=== PATIENT | male | born 1970 | race Caucasian/White ===

== ENCOUNTER 2016-12-19 08:08 | Emergency (ER) | payer OTHER ==
[~2016-12-19] VITALS: Ht 167.6 cm; Wt 82.0 kg
[2016-12-19] MEDS ORDERED: UNKNOWN BP MED (08:27)
[2016-12-19] MEDS ORDERED: SODIUM CHLORIDE 0.9% 1,000 ML IV ONE (09:06)
[2016-12-19] MEDS ORDERED: MORPHINE SULFATE 4 MG/ML CPJ (NOT FOR IM USE) IV STA (09:06)
[2016-12-19] MEDS ORDERED: FAMOTIDINE 20MG/2ML VIAL IV STA (09:06)
[2016-12-19] MEDS ORDERED: ONDANSETRON HCL 4MG/2ML VIAL IV STA (09:06)
[2016-12-19 09:28] LABS: BASOPHILS % 0.5 % (0.0-2.0); EOSINOPHILS % 0.4 % (0.0-5.0); HEMOGLOBIN. 14.3 g/dL (14.0-18.0); LYMPHOCYTES % 10.6 % (20.0-50.0); MEAN CORPUSCULAR HEMOGLOBIN 31.3 pg (28.0-32.0); MEAN CORPUSCULAR HGB CONC 34.9 g/dL (31.0-37.0); MEAN CORPUSCULAR VOLUME 89.6 fL (80.0-94.0); MONOCYTES % 10.9 % (2.0-8.0); NEUTROPHILS % 77.6 % (40.0-76.0); PLATELET 184 x1000/uL (130-400); RED BLOOD CELL COUNT 4.58 mill/uL (4.7-6.1); RED CELL DISTRIBUTION WIDTH 14.2 % (11.6-14.6); WHITE BLOOD COUNT 7.5 x1000/uL (4.5-11.0)
[2016-12-19 09:36] LABS: PROTHROMBIN TIME 10.6 sec
[2016-12-19 09:37] LABS: CHLORIDE 102 mEq/L (98-107); INDEX HEMOLYSI 1 (1-3); INDEX ICTERIC 1 (1-4); INDEX LIPEMIC 1 (1-3)
[2016-12-19 09:46] LABS: ALANINE AMINOTRANSFERASE 30 IU/L (13-61); ALBUMIN 3.8 g/dL (3.4-5.0); ANION GAP 9; CALCIUM 9.3 mg/dL (8.5-10.1); CARBON DIOXIDE 32 mEq/L (21-32); ETHANOL BLOOD < 10 mg/dL; LIPASE 360 IU/L (73-393); TROPONIN I < 0.02 ng/mL (0.00-0.04); UREA NITROGEN BLOOD 8 mg/dL (7-21); eGFR > 60 mL/min (>60)
[2016-12-19 09:48] LABS: CLARITY URINE CLEAR (CLEAR); COLOR URINE YELLOW (YELLOW); GLUCOSE URINE NEGATIVE (NEGATIVE); KETONES URINE NEGATIVE (NEGATIVE); LEUKOCYTE ESTERASE URINE NEGATIVE (NEGATIVE); NITRITE URINE NEGATIVE (NEGATIVE); OCCULT BLOOD URINE TRACE (NEGATIVE); PROTEIN URINE 2+ (NEGATIVE); SPECIFIC GRAVITY URINE 1.016 (1.005-1.030)
[2016-12-19 09:56] LABS: *AMPHETAMINES SCREEN URINE NEGATIVE (NEGATIVE); *BARBITURATES SCREEN URINE NEGATIVE (NEGATIVE); *BENZODIAZEPINES SCREEN URINE NEGATIVE (NEGATIVE); *COCAINE SCREEN URINE NEGATIVE (NEGATIVE); CANNABINOID URINE SCREEN NEGATIVE (NEGATIVE); ECSTASY MDMA SCREEN URINE NEGATIVE (NEGATIVE); METHADONE URINE SCREEN NEGATIVE (NEGATIVE); OPIATES URINE SCREEN NEGATIVE (NEGATIVE); PHENCYCLIDINE URINE SCREEN NEGATIVE (NEGATIVE)
[2016-12-19] MEDS ORDERED: HYDRALAZINE 20MG/ML VIAL IV ONE (10:00)
[2016-12-19 10:10] LABS: WBC URINE 0-2 /hpf (0-2)
[2016-12-19 10:11] LABS: BACTERIA URINE NONE SEEN; SQUAMOUS EPITHELIAL CELL URINE NONE SEEN /lpf (RARE/1+)
[2016-12-19 10:37] VITALS: BP 165/111
== END 2016-12-19 11:01 | disposition home or self-care (01) ==
LOC: ER 09:21
DX: R31.9 Hematuria, unspecified (principal); I10 Essential (primary) hypertension; R10.31 Right lower quadrant pain; R11.2 Nausea with vomiting, unspecified
CPT/HCPCS: 36415; 71010; 74176; 80053; 80305; 81001; 83690; 84484; 85025; 85610; 93005; 96361; 96374; 96375; 99285; G0482; J0360; J2270; J2405; J3490; J7030; Z7610

== ENCOUNTER 2017-05-29 08:32 | Emergency (ER) | payer OTHER ==
[~2017-05-29] VITALS: Ht 170.2 cm; Wt 78.0 kg
[~2017-05-29 08:32] MED LIST: UNKNOWN BP MED
[2017-05-29] MEDS ORDERED: SODIUM CHLORIDE 0.9% 1,000 ML IV ONE (09:19)
[2017-05-29] MEDS ORDERED: KETOROLAC 30MG/ML VIAL IV STA (09:19)
[2017-05-29 09:37] LABS: BASOPHILS % 0.9 % (0.0-2.0); EOSINOPHILS % 0.9 % (0.0-5.0); HEMATOCRIT. 43.3 % (42.0-52.0); HEMOGLOBIN. 15.4 g/dL (14.0-18.0); LYMPHOCYTES % 8.6 % (20.0-50.0); MEAN CORPUSCULAR HEMOGLOBIN 32.7 pg (28.0-32.0); MEAN CORPUSCULAR VOLUME 91.8 fL (80.0-94.0); MEAN PLATELET VOLUME 6.8 fl (7.4-10.4); MONOCYTES % 7.2 % (2.0-8.0); NEUTROPHILS % 82.4 % (40.0-76.0); PLATELET 314 x1000/uL (130-400); RED BLOOD CELL COUNT 4.71 mill/uL (4.7-6.1); RED CELL DISTRIBUTION WIDTH 13.7 % (11.6-14.6)
[2017-05-29 09:41] LABS: PROTHROMBIN TIME 10.7 sec (9.4-11.6)
[2017-05-29 09:42] LABS: CHLORIDE 105 mEq/L (98-107)
[2017-05-29] MEDS ORDERED: CHLORDIAZEPOXIDE 25MG CAPSULE PO ONE (09:45)
[2017-05-29 09:50] LABS: CARBON DIOXIDE 26 mEq/L (21-32)
[2017-05-29 11:19] LABS: CLARITY URINE CLEAR (CLEAR); COLOR URINE ORANGE (YELLOW); GLUCOSE URINE NEGATIVE (NEGATIVE); KETONES URINE TRACE (NEGATIVE); LEUKOCYTE ESTERASE URINE TRACE (NEGATIVE); NITRITE URINE NEGATIVE (NEGATIVE); OCCULT BLOOD URINE 2+ (NEGATIVE); PROTEIN URINE 2+ (NEGATIVE); SPECIFIC GRAVITY URINE 1.019 (1.005-1.030)
[2017-05-29] MEDS ORDERED: AMLODIPINE 5MG TABLET PO ONE (11:45)
[2017-05-29 14:21] VITALS: BP 168/104
== END 2017-05-29 14:23 | disposition home or self-care (01) ==
LOC: ER 08:32
DX: R10.9 Unspecified abdominal pain (principal); F10.239 Alcohol dependence with withdrawal, unspecified; J02.9 Acute pharyngitis, unspecified; I10 Essential (primary) hypertension; F17.200 Nicotine dependence, unspecified, uncomplicated; K76.0 Fatty (change of) liver, not elsewhere classified
CPT/HCPCS: 36415; 74176; 80053; 81001; 83690; 85025; 85610; 93005; 96361; 96374; 99285; J1885; J7030; Z7610

== ENCOUNTER 2018-11-21 05:27 | Inpatient (IN) | payer OTHER ==
[~2018-11-21] VITALS: Ht 165.1 cm; Wt 73.9 kg
[2018-11-21] MEDS ORDERED: HYDRALAZINE 20MG/ML VIAL IV ONE (06:45)
[2018-11-21] MEDS ORDERED: LORAZEPAM 2MG/ML CPJ IV ONE (06:45)
[2018-11-21 07:01] LABS: HEMATOCRIT. 39.6 % (42.0-52.0); HEMOGLOBIN. 13.8 g/dL (14.0-18.0); MEAN CORPUSCULAR HEMOGLOBIN 31.7 pg (28.0-32.0); MEAN CORPUSCULAR VOLUME 91.1 fL (80.0-94.0); MEAN PLATELET VOLUME 6.3 fl (7.4-10.4); PLATELET 211 x1000/uL (130-400); RED BLOOD CELL COUNT 4.34 mill/uL (4.7-6.1)
[2018-11-21 07:05] LABS: CHLORIDE 104 mEq/L (98-107)
[2018-11-21 07:11] LABS: ETHANOL BLOOD < 10 mg/dL
[2018-11-21 07:38] LABS: PLATELET ESTIMATE NORMAL
[2018-11-21] MEDS ORDERED: MORPHINE SULFATE 4 MG/ML CPJ (NOT FOR IM USE) IV PRN (13:45)
[2018-11-21] MEDS ORDERED: ONDANSETRON HCL 4MG/2ML INJ IV PRN (13:45)
[2018-11-21] MEDS ORDERED: IPRATROPIUM/ALBUTEROL 0.5-3(2.5)MG/3ML NEB INH PRN (13:45)
[2018-11-21] MEDS: METOPROLOL TARTRATE 25MG TABLET PO SCH (14:02)
[2018-11-21 14:39] LABS: PROTHROMBIN TIME 10.2 sec (9.6-11.0)
[2018-11-21 14:44] LABS: PHOSPHORUS 4.2 mg/dL (2.5-4.9)
[2018-11-21 15:00] LABS: FERRITIN 218 ng/mL (22-322)
[2018-11-21 15:00] LABS: CLARITY URINE CLEAR (CLEAR); COLOR URINE DARK YELLOW (YELLOW); KETONES URINE 3+ (NEGATIVE); LEUKOCYTE ESTERASE URINE TRACE (NEGATIVE); NITRITE URINE NEGATIVE (NEGATIVE); OCCULT BLOOD URINE NEGATIVE (NEGATIVE); PROTEIN URINE 2+ (NEGATIVE); SPECIFIC GRAVITY URINE 1.024 (1.005-1.030)
[2018-11-21] MEDS ORDERED: HYDRALAZINE 20MG/ML VIAL IV PRN (15:00)
[2018-11-21] MEDS ORDERED: CLONIDINE 0.1MG TABLET PO PRN (15:00)
[2018-11-21 15:04] LABS: FOLIC ACID (FOLATE) SERUM > 20.00 ng/mL (>5.38)
[2018-11-21 15:11] LABS: VITAMIN B12 SERUM 456 pg/mL (211-911)
[2018-11-21 15:12] LABS: HEPATITIS B SURFACE ANTIGEN NEGATIVE
[2018-11-21 15:33] LABS: METHADONE URINE SCREEN NEGATIVE (NEGATIVE); OPIATES URINE SCREEN NEGATIVE (NEGATIVE); PHENCYCLIDINE URINE SCREEN NEGATIVE (NEGATIVE)
[2018-11-21 15:34] LABS: *AMPHETAMINES SCREEN URINE NEGATIVE (NEGATIVE); *BARBITURATES SCREEN URINE NEGATIVE (NEGATIVE); *BENZODIAZEPINES SCREEN URINE NEGATIVE (NEGATIVE); *COCAINE SCREEN URINE NEGATIVE (NEGATIVE); CANNABINOID URINE SCREEN NEGATIVE (NEGATIVE)
[2018-11-21 15:41] LABS: HEPATITIS A AB IGM NEGATIVE (NEGATIVE)
[2018-11-21] MEDS: CHLORDIAZEPOXIDE 25MG CAPSULE PO SCH ×2 (15:42→21:25)
[2018-11-21] MEDS: AMLODIPINE 5MG TABLET PO SCH ×2 (15:43→23:01)
[2018-11-21] MEDS: PANTOPRAZOLE SODIUM 40 MG/VIAL IV SCH (15:43)
[2018-11-21] MEDS: LOSARTAN POTASSIUM 25 MG TABLET PO SCH ×2 (15:43→21:25)
[2018-11-21 16:00] VITALS: BP 187/118
[2018-11-21 16:18] VITALS: BP 187/118
[2018-11-21] MEDS ORDERED: FOLIC ACID 1 MG, THIAMINE HCL 100 MG, MVI, ADULT NO.1 10 ML in DEXTROSE 5% WATER 1,000 ML IV ONE ×4 (17:00)
[2018-11-21 18:00] VITALS: BP 187/118
[2018-11-21 20:00] VITALS: BP 153/97
[2018-11-22] VITALS: BP 146/79
[2018-11-22 04:00] VITALS: BP 138/85
[2018-11-22] MEDS: CHLORDIAZEPOXIDE 25MG CAPSULE PO SCH ×2 (05:53→13:19)
[2018-11-22 06:39] LABS: BASOPHILS % 0.5 % (0.0-2.0); EOSINOPHILS % 1.7 % (0.0-5.0); HEMATOCRIT. 39.4 % (42.0-52.0); HEMOGLOBIN. 13.8 g/dL (14.0-18.0); LYMPHOCYTES % 17.1 % (20.0-50.0); MEAN CORPUSCULAR HEMOGLOBIN 32.4 pg (28.0-32.0); MEAN CORPUSCULAR VOLUME 92.5 fL (80.0-94.0); MONOCYTES % 11.8 % (2.0-8.0); NEUTROPHILS % 68.9 % (40.0-76.0); PLATELET 207 x1000/uL (130-400); RED BLOOD CELL COUNT 4.26 mill/uL (4.7-6.1); RED CELL DISTRIBUTION WIDTH 14.1 % (11.6-14.6)
[2018-11-22 08:00] VITALS: BP 152/90
[2018-11-22 08:09] LABS: CHLORIDE 103 mEq/L (98-107)
[2018-11-22 08:26] LABS: CREATINE KINASE 81 IU/L (39-308)
[2018-11-22 08:31] LABS: CREATINE KINASE MB FRACTION < 1.0 ng/mL (0.5-3.6)
[2018-11-22] MEDS: LOSARTAN POTASSIUM 25 MG TABLET PO SCH (09:24)
[2018-11-22] MEDS: AMLODIPINE 5MG TABLET PO SCH (09:24)
[2018-11-22] MEDS: PANTOPRAZOLE SODIUM 40 MG/VIAL IV SCH (09:24)
[2018-11-22] MEDS: METOPROLOL TARTRATE 25MG TABLET PO SCH (09:25)
[2018-11-22] MEDS ORDERED: POTASSIUM CHLORIDE 20MEQ TABLET SR PO NR (11:14)
[2018-11-22 12:00] VITALS: BP 145/83
[2018-11-22 16:00] VITALS: BP 140/93
[2018-11-22] MEDS ORDERED: METO25TA6 PO (17:42)
[2018-11-22] MEDS ORDERED: L25 PO (17:42)
[2018-11-22] MEDS ORDERED: PANT20TA3 MT (17:42)
[2018-11-22] MEDS ORDERED: LOSA50TA3 PO (17:42)
[2018-11-22] MEDS ORDERED: AMLO5TAB88 PO (17:42)
[2018-11-22 18:11] VITALS: BP 140/93
[2018-11-22] MEDS ORDERED: LOSARTAN POTASSIUM 50 MG TABLET PO SCH (21:00)
[2018-11-23 05:29] LABS: HIV SCREEN 4G Non Reactive (Non Reactive)
== END 2018-11-22 18:58 | disposition home or self-care (01) | DRG 199 ==
LOC: ER 05:27 → 8WST 09:47 → EDBEDREQ 09:51 → ENRESERV 12:15
PROVIDERS: ADMIT Internal Medicine; ATTEND Internal Medicine
DX: I16.1 Hypertensive emergency (principal); K76.0 Fatty (change of) liver, not elsewhere classified; D64.9 Anemia, unspecified; I10 Essential (primary) hypertension; D72.829 Elevated white blood cell count, unspecified; E78.00 Pure hypercholesterolemia, unspecified; F10.230 Alcohol dependence with withdrawal, uncomplicated; R73.9 Hyperglycemia, unspecified; E78.5 Hyperlipidemia, unspecified
CPT/HCPCS: 36415; 71045; 76700; 80048; 80061; 80076; 80305; 80320; 82550; 82553; 82607; 82728; 82746; 83036; 83540; 83550; 83735; 84100; 84443; 84484; 85379; 86705; 86709; 86803; 87340; 87389; 93005; 93306; 96374; 96375; 99285; C9113; J0360; J2060; J3411; J3490; J7070; G0480